=== PATIENT | female | born 1990 | race Caucasian/White ===

== ENCOUNTER 2021-04-06 22:38 | Emergency (ER) | payer SELFPAY ==
[~2021-04-06] VITALS: Ht 160 cm; Wt 54.5 kg
[2021-04-06] MEDS ORDERED: AMOXICILLIN875 MG PO (23:00)
[2021-04-06 23:18] VITALS: BP 113/72; PULSE 79; TEMP 98.2
== END 2021-04-06 23:18 | disposition home or self-care (01) ==
LOC: COL.ER 22:38
DX: K04.7 Periapical abscess without sinus (principal)
CPT/HCPCS: J1885